=== PATIENT | male | born 1960 | race Caucasian/White ===

== ENCOUNTER 2017-12-25 17:28 | Emergency (ER) | payer BC ==
--- NOTE | 2017-12-25 17:45 | EDM.PDOC ---
ED HPI GENERAL MEDICAL PROBLEM - General Chief Complaint: Chest Pain Stated Complaint: CHEST PAIN Time Seen by Provider: 12/25/17 17:37 Source of Information: Reports: Patient, RN Notes Reviewed - History of Present Illness INITIAL COMMENTS - FREE TEXT/NARRATIVE: 57-year-old male comes in with left shoulder and arm discomfort which she has had for about 4-5 days but now also some left upper anterior chest discomfort that just started a couple of hours prior to arrival to ED. Intent is to have an achy type discomfort of his left upper chest just below the shoulder. He continues to have some pain shooting into the left shoulder and left arm. He denies history for hypertension, coronary artery disease, diabetes. Does smoke. He also did have carotid endarterectomy last summer about 7 or 8 months ago. He does have occasional cough but not really worse than usual. No recent fever or chills. He states he does have chronic neck discomfort. Not aware of any recent injury. Chest Pain Score (Numeric/FACES): 5 - Related Data Allergies Allergy/AdvReac Type Severity Reaction Status Date / Time No Known Allergies Allergy Verified 12/25/17 17:33 Home Meds: Home Meds Naproxen [Naprosyn] 500 mg PO Q12HR #14 tab 12/25/17 [Rx] ED ROS GENERAL - Review of Systems Review Of Systems: See Below Constitutional: Denies: Fever, Chills, Diaphoresis HEENT: Denies: Throat Pain Respiratory: Denies: Shortness of Breath, Pleuritic Chest Pain Cardiovascular: Reports: Chest Pain (Achy discomfort left upper chest) GI/Abdominal: Denies: Abdominal Pain, Nausea, Vomiting Musculoskeletal: Reports: Neck Pain, Shoulder Pain, Arm Pain Skin: Reports: No Symptoms Neurological: Reports: No Symptoms. Denies: Numbness, Tingling ED EXAM, GENERAL - Physical Exam Exam: See Below General Appearance: Alert, No Apparent Distress Eye Exam: Bilateral Eye: PERRL Throat/Mouth: Normal Inspection Head: Atraumatic. No: Facial Swelling Neck: Supple, Other Respiratory/Chest: No Respiratory Distress (There is tenderness of the left posterior base, no appreciable spasm), Lungs Clear, Normal Breath Sounds, Chest Non-Tender Cardiovascular: Regular Rate, Rhythm GI/Abdominal: Soft, Non-Tender. No: Guarding Back Exam: No: CVA Tenderness (L), CVA Tenderness (R) Extremities: Normal Inspection. No: Pedal Edema, Leg Pain Neurological: Alert, Oriented, No Motor/Sensory Deficits Skin Exam: Warm, Dry, Normal Color EKG INTERPRETATION EKG Date: 12/25/17 Rhythm: NSR P-Wave: Present QRS: Normal ST-T: Normal Course - Vital Signs Last Recorded V/S: Last Vital Signs Temp 95.8 F 12/25/17 17:33 Pulse 76 12/25/17 17:33 Resp 16 12/25/17 17:33 BP 149/82 H 12/25/17 17:33 Pulse Ox 97 12/25/17 17:33 - Orders/Labs/Meds Orders: Active Orders 24 hr Category Date Time Status EKG 12 Lead [EKG Documentation Completion] [RC] STAT Care 12/25/17 17:47 Active Peripheral IV Care [RC] . DIRECTED Care 12/25/17 17:48 Active Chest 1V Frontal [CR] Stat Exams 12/25/17 17:47 Taken Sodium Chloride 0.9% [Saline Flush] Med 12/25/17 17:46 Active 10 ml FLUSH ASDIRECTED PRN Peripheral IV Insertion Adult [OM.PC] Stat Oth 12/25/17 17:47 Ordered Medication Orders Sodium Chloride (Saline Flush) 10 ml FLUSH ASDIRECTED PRN PRN Reason: Keep Vein Open Last Admin: 12/25/17 17:53 Dose: 10 ml Labs: Laboratory Tests 12/25/17 12/25/17 12/25/17 Range/Units 17:39 17:39 19:45 WBC 6.54 (4.23-9.07) K/mm3 RBC 4.42 L (4.63-6.08) M/mm3 Hgb 14.2 (13.7-17.5) gm/L Hct 41.8 (40.1-51.0) % MCV 94.6 H (79.0-92.2) fl MCH 32.1 (25.7-32.2) pg MCHC 34.0 (32.2-35.5) g/dl RDW Std Deviation 46.2 H (35.1-43.9) fL Plt Count 294 (163-337) K/mm3 MPV 8.2 L (9.4-12.3) fl Neut % (Auto) 44.9 (34.0-67.9) % Lymph % (Auto) 43.3 (21.8-53.1) % Barron % (Auto) 8.0 (5.3-12.2) % Eos % (Auto) 3.2 (0.8-7.0) Baso % (Auto) 0.3 (0.1-1.2) % Neut # (Auto) 2.94 (1.78-5.38) K/mm3 Lymph # (Auto) 2.83 (1.32-3.57) K/mm3 Barron # (Auto) 0.52 (0.30-0.82) K/mm3 Eos # (Auto) 0.21 (0.04-0.54) K/mm3 Baso # (Auto) 0.02 (0.01-0.08) K/mm3 Sodium 139 (136-145) mEq/L Potassium 4.0 (3.5-5.1) mEq/L Chloride 104 (98-107) mEq/L Carbon Dioxide 25 (21-32) mEq/L Anion Gap 14.0 (5-15) BUN 13 (7-18) mg/dL Creatinine 1.2 (0.7-1.3) mg/dL Est Cr Clr Drug Dosing 70.97 mL/min Estimated GFR (MDRD) > 60 (>60) mL/min BUN/Creatinine Ratio 10.8 L (14-18) Glucose 114 H (74-106) mg/dL Calcium 9.0 (8.5-10.1) mg/dL Total Bilirubin 0.3 (0.2-1.0) mg/dL AST 20 (15-37) U/L ALT 53 (16-63) U/L Alkaline Phosphatase 64 (46-116) U/L Troponin I < 0.017 < 0.017 (0.00-0.056) ng/mL Total Protein 7.4 (6.4-8.2) g/dl Albumin 4.2 (3.4-5.0) g/dl Globulin 3.2 gm/dL Albumin/Globulin Ratio 1.3 (1-2) Meds: Medications Generic Name Dose Route Start Last Admin Trade Name Freq PRN Reason Stop Dose Admin Sodium Chloride 10 ml 12/25/17 17:46 12/25/17 17:53 Saline Flush FLUSH 10 ml ASDIRECTED PRN Administration Keep Vein Open Discontinued Medications Generic Name Dose Route Start Last Admin Trade Name Ngoc PRN Reason Stop Dose Admin Aspirin 324 mg 12/25/17 17:48 12/25/17 17:53 Aspirin PO 12/25/17 17:49 324 mg ONETIME ONE Administration - Re-Assessments/Exams Free Text/Narrative Re-Assessment/Exam: 12/25/17 19:39. Patient is resting comfortably. Chest discomfort is gone. He still does have some pain going into the left shoulder and arm which has been fairly persistent for him for the last 3 or 4 days. I do not see acute findings on his chest x-ray. EKG is very normal. Will do a repeat 2 hour troponin at this time. 12/25/17 20:25. Repeat troponin normal. I am going to start him on a short term course of prednisone and also some Naprosyn 500 mg twice a day. Follow up Clinic early next week. Discharge instructions as documented Departure - Departure Time of Disposition: 20:28 Disposition: Home, Self-Care 01 Condition: Fair Clinical Impression: Atypical chest pain, Cervical radiculopathy Prescriptions: Naproxen [Naprosyn] 500 mg PO Q12HR #14 tab Referrals: PCP,None [Primary Care Provider] - Forms: ED Department Discharge - My Orders Last 24 Hours: My Active Orders 12/25/17 17:46 Sodium Chloride 0.9% [Saline Flush] 10 ml FLUSH ASDIRECTED PRN 12/25/17 17:47 EKG 12 Lead [EKG Documentation Completion] [RC] STAT Chest 1V Frontal [CR] Stat Peripheral IV Insertion Adult [OM.PC] Stat 12/25/17 17:48 Peripheral IV Care [RC] . DIRECTED - Assessment/Plan Last 24 Hours: My Active Orders 12/25/17 17:46 Sodium Chloride 0.9% [Saline Flush] 10 ml FLUSH ASDIRECTED PRN 12/25/17 17:47 EKG 12 Lead [EKG Documentation Completion] [RC] STAT Chest 1V Frontal [CR] Stat Peripheral IV Insertion Adult [OM.PC] Stat 12/25/17 17:48 Peripheral IV Care [RC] . DIRECTED
[2017-12-25] MEDS ORDERED: Sodium Chloride 0.9% 10 ML Syringe FLUSH PRN (17:46)
[2017-12-25] MEDS ORDERED: Aspirin 81 MG Tab.Chew PO ONE (17:48)
--- NOTE | 2017-12-26 07:32 | CR ---
Chest: Portable view of the chest was obtained. Comparison: No prior study. Heart size and mediastinum are normal. Lungs are clear. Surgical clips are seen within the upper right abdomen. Impression: 1. Nothing acute is seen on portable chest x-ray. Diagnostic code #1
== END 2017-12-25 20:45 | disposition home or self-care (01) ==
LOC: JD.ED 17:28
DX: M54.12 Radiculopathy, cervical region (principal); R07.89 Other chest pain
CPT/HCPCS: 36415; 71045; 80053; 84484; 85025; 93005; 99285; A9270; J7050; 93010; 99284-25

== ENCOUNTER 2018-01-22 08:26 | Day surgery (SDC) | payer BC ==
[~2018-01-22 08:26] MED LIST: Lactated Ringers 1,000 ML IV SCH; Lidocaine 1% 4 ML ONE; Lidocaine 1%/Sod Bicarbonate in NS 8.4% 1 ML Syringe IDERM PRN; Propofol 200 MG/20 ML SDV ONE; Sodium Chloride 0.9% 10 ML Syringe FLUSH PRN; fentaNYL 100 MCG/2 ML SDV ONE
--- NOTE | 2018-01-22 09:08 | PCM.PREANE ---
Preanesthetic Assessment - Anesthesia/Transfusion/Family Hx Anesthesia History: Prior Anesthesia Without Reaction Family History of Anesthesia Reaction: No Transfusion History: No Prior Transfusion(s) Intubation History: Unknown - Review of Systems Pulmonary: No Symptoms (Smokes: under 1packs/day times 35 years./ History of ETOH abuse/last drink 25 yrs ago.) Cardiovascular: No Symptoms Gastrointestinal: No Symptoms (GERD at times.), Decreased Appetite, Diarrhea Neurological: No Symptoms (History of carotid artery stenosis/carotid angioplasty with history of 95% blockage June 2017 laser diskectomy), Numbness (bilateral hand numbnes noted mostly at night when sleeping.) Other: Reports: None (History of colon resection/ History of diverticulitis) - Physical Assessment NPO Status Date: 01/21/18 NPO Status Time: 22:20 Pulse: 63 O2 Sat by Pulse Oximetry: 96 Respiratory Rate: 16 Blood Pressure: 138/73 Temperature: 36.3 C Vital Signs: Last Vital Signs Temp 36.3 C 01/22/18 08:35 Pulse 63 01/22/18 08:35 Resp 16 01/22/18 08:35 BP 138/73 01/22/18 08:35 Pulse Ox 96 01/22/18 08:35 Height: 1.78 m Weight: 101.605 kg ASA Class: 3 Mental Status: Alert & Oriented x3 Airway Class: Mallampati = 3 Dentition: Reports: Normal Dentition, Missing Tooth/Teeth, Caries Thyro-Mental Finger Breadths: 3 Mouth Opening Finger Breadths: 3 ROM/Head Extension: Full Lungs: Clear to Auscultation, Normal Respiratory Effort, Decreased Breath Sounds (posteriorly) Cardiovascular: Regular Rate, Regular Rhythm, No Murmurs - Lab Values: All lab values reviewed and noted and within acceptable ranges to proceed with scheduled procedure. - Imaging/EKG Impressions: EKG: SR rate=75 CXR: negative - Allergies Allergies/Adverse Reactions: Allergies Allergy/AdvReac Type Severity Reaction Status Date / Time No Known Allergies Allergy Verified 01/21/18 13:12 - Anesthesia Plan Pre-Op Medication Ordered: None - Acknowledgements Anesthesia Type Planned: MAC Pt an Appropriate Candidate for the Planned Anesthesia: Yes Alternatives and Risks of Anesthesia Discussed w Pt/Guardian: Yes Pt/Guardian Understands and Agrees with Anesthesia Plan: Yes PreAnesthesia Questionnaire HEENT History: Reports: Impaired Vision, Other (See Below) Other HEENT History: wears glasses Cardiovascular History: Reports: Other (See Below) Other Cardiovascular History: carotid artery stenosis, carotid angioplasty Respiratory History: Reports: None Gastrointestinal History: Reports: Colon Polyp, Diverticulosis Genitourinary History: Reports: None [employer] ENGINEER History: Reports: None Musculoskeletal History: Reports: Arthritis, Other (See Below) Other Musculoskeletal History: carpal tunnel syndrome, shoulder pain, neck pain Neurological History: Reports: None Psychiatric History: Reports: Addiction Endocrine/Metabolic History: Reports: None Hematologic History: Reports: None Immunologic History: Reports: None Oncologic (Cancer) History: Reports: None Dermatologic History: Reports: None - Past Surgical History Head Surgeries/Procedures: Reports: None Cardiovascular Surgical History: Reports: None Respiratory Surgical History: Reports: None GI Surgical History: Reports: Appendectomy, Cholecystectomy, Colonoscopy, Other (See Below) Other GI Surgeries/Procedures: subtotal colectomy Female Surgical History: Reports: None Male Surgical History: Reports: None Endocrine Surgical History: Reports: None Neurological Surgical History: Reports: Discectomy, Other (See Below) Other Neurological Surgeries/Procedures: laser discectomy Musculoskeletal Surgical History: Reports: None Oncologic Surgical History: Reports: None Dermatological Surgical History: Reports: None - SUBSTANCE USE Smoking Status *Q: Current Every Day Smoker Recreational Drug Use History: No - HOME MEDS Home Medications: Home Meds Meloxicam [Meloxicam] 15 mg PO DAILY 01/21/18 [History] atorvaSTATin Calcium [Atorvastatin Calcium] 40 mg PO DAILY 01/21/18 [History] - CURRENT (IN HOUSE) MEDS Current Meds: Current Medications Lactated Ringer's (Ringers, Lactated) 1,000 mls @ 125 mls/hr IV ASDIRECTED ZEKE Last Admin: 01/22/18 08:45 Dose: 125 mls/hr Lidocaine/Sodium Bicarbonate (Buffered Lidocaine 1% In Ns 8.4%) 0.25 ml IDERM ONETIME PRN PRN Reason: Prior to IV Start Last Admin: 01/22/18 08:45 Dose: 0.25 ml Sodium Chloride (Saline Flush) 10 ml FLUSH ASDIRECTED PRN PRN Reason: Keep Vein Open Discontinued Medications Fentanyl (Sublimaze) Confirm Administered Dose 100 mcg .ROUTE .STK-MED ONE Stop: 01/22/18 08:16 Lidocaine HCl (Xylocaine-Mpf 1%) Confirm Administered Dose 4 mls @ as directed .ROUTE .STK-MED ONE Stop: 01/22/18 08:16 Propofol (Diprivan 20 Ml) Confirm Administered Dose 400 mg .ROUTE .STK-MED ONE Stop: 01/22/18 08:16
--- NOTE | 2018-01-22 10:00 | PCM.OPNOTE ---
- General Post-Op/Procedure Note Date of Surgery/Procedure: 01/22/18 Operative Procedure(s): Colonoscopy with snare rectal polypectomy Findings: 8mm pedunculated rectal polyp Uncomplicated internal hemorrhoids Small diverticuli of sigmoid Pre Op Diagnosis: History of colorectal polyps and diverticulosis Post-Op Diagnosis: 1. Pedunculated rectal polyp. 2. Internal hemorrhoids. 3. Uncomplicated sigmoid diverticulosis Anesthesia Technique: MAC, Moderate Sedation Primary Surgeon: Stanley Waller Pathology: Rectal polyp EBL in mLs: 0 Complications: None Condition: Good Free Text/Narrative:: After adequate IV sedation and analgesia was obtained with monitoring the patient was placed on his left side. Perianal inspection revealed the slightly prolapsing internal hemorrhoids. The prostate was grossly normal. A lubricated colonoscope was inserted into the rectum and advanced to the cecum without difficulty. The bowel preparation was fair. Fine mucosal detail throughout the entire examination couldn't be optimally observed. The cecum ascending colon transverse and descending colons nevertheless were endoscopically normal with no obvious mass lesions or inflammatory changes. The sigmoid had a couple of small diverticuli. In the rectum at about 15 cm from the anal verge there was a pedunculated polyp which I removed with hot snare. The specimen was retrieved. I cauterized the base of the polypectomy site. There was no bleeding. In the retroflexed view I could see the small internal hemorrhoids. Photographs wee taken for the patient and for the medical record.
--- NOTE | 2018-01-22 10:04 | PCM48HPAN ---
Post Anesthesia Note - EVALUATION WITHIN 48HRS OF ANESTHETIC Vital Signs in Normal Range: Yes Patient Participated in Evaluation: Yes Respiratory Function Stable: Yes Airway Patent: Yes Cardiovascular Function Stable: Yes Hydration Status Stable: Yes Pain Control Satisfactory: Yes Nausea and Vomiting Control Satisfactory: Yes Mental Status Recovered: Yes Pulse Rate: 61 SaO2: 94 Resp Rate: 16 Temperature: 36.4 C Blood Pressure: 135/77
== END 2018-01-22 10:35 | disposition home or self-care (01) ==
LOC: JD.SDS 08:26
PROVIDERS: ATTEND Surgery
DX: Z12.11 Encounter for screening for malignant neoplasm of colon (principal); D12.8 Benign neoplasm of rectum; K64.8 Other hemorrhoids; K57.30 Diverticulosis of large intestine without perforation or abscess without bleeding; E78.5 Hyperlipidemia, unspecified; K52.9 Noninfective gastroenteritis and colitis, unspecified; Z86.010 Personal history of colon polyps; Z79.899 Other long term (current) drug therapy; F17.210 Nicotine dependence, cigarettes, uncomplicated
CPT/HCPCS: 45385; J3010; J7120; 00812; J2704